=== PATIENT | female | born 1965 | race Hispanic/Latino ===

== ENCOUNTER 2019-04-18 14:25 | Day surgery (SDC) | payer BC ==
[~2019-04-18 14:25] MED LIST: NAPROSYN500 MG PO
[2019-04-18 16:40] VITALS: BP 118/92
== END 2019-04-18 16:45 | disposition home or self-care (01) | DRG 392 ==
LOC: ENDO 14:25
PROVIDERS: ATTEND Internal Medicine Gastroenterology
PROC: 0DJD8ZZ Inspection of Lower Intestinal Tract, Via Natural or Artificial Opening Endoscopic (ICD-10-PCS; principal; 2019-04-18)
DX: K59.00 Constipation, unspecified (principal); K64.4 Residual hemorrhoidal skin tags; K64.8 Other hemorrhoids